=== PATIENT | female | born 1945 | race Caucasian/White ===

== ENCOUNTER 2017-02-11 15:40 | Inpatient (IN) | payer OTHER, MEDICARE ==
[~2017-02-11] VITALS: Ht 160 cm; Wt 95.3 kg
--- NOTE | 2017-02-11 15:51 | NUR ---
PT IN BATHROOM AT THIS TIME.
--- NOTE | 2017-02-11 16:01 | NUR ---
Informed waiting has been performed.
--- NOTE | 2017-02-11 16:01 | NUR ---
TRIAGE: PT BIBA FROM HOME C/C PAIN TO R LOW BACK X 2 WKS MADE WORSE TODAY WHEN BENDING OVER TO DO GAURI LITTER. PAIN NOW RADIATES DOWN RT LEG INTO FOOT. ?SCIATICA. TOOK 800 MG X 2 TABS AND TRAMADOL X 2 SINCE APPROX NOON TODAY FOR THE PAIN. STATES PAIN WAS "22"/ AND NOW IS 01/30.
--- NOTE | 2017-02-11 16:47 | NUR ---
RECIEVED TO ROOM 17 VIA WHEELCHAIR. TRANSFERED TO STRETCHER SLOWLY DUE TO PAIN
--- NOTE | 2017-02-11 16:58 | NUR ---
PT REPORTS BENDING OVER TODAY TO CLEAN LITTER BOX AND GETTING SUDDEN ONSET SHARP SHOOTING PAIN DOWN RIGHT LEG. PT TOOK 800 OF MOTRIN AROUND 0900 AND 2 TRAMADOL AT 2PM. STATES TRAMADOL IS HELPING SOME. DENIES DIFFICULTY WITH VOIDING, HAD BM TODAY. PALPABLE PEDAL PULSES.
[2017-02-11] MEDS ORDERED: MELOXICAM15 M1 PO (17:09)
[2017-02-11] MEDS ORDERED: INDAPAMIDE1.25 M1 PO (17:09)
[2017-02-11] MEDS ORDERED: KLOR-CON M1010 ME1 PO (17:10)
[2017-02-11] MEDS ORDERED: FLUOXETINE HCL20 M2 PO (17:10)
[2017-02-11] MEDS ORDERED: LOSARTAN POTASS50 M1 PO (17:11)
[2017-02-11] MEDS ORDERED: GABAPENTIN100 M2 PO (17:12)
[2017-02-11] MEDS ORDERED: VESICARE5 M1 PO (17:12)
[2017-02-11] MEDS ORDERED: NEXIUM40 M1 PO (17:13)
[2017-02-11] MEDS ORDERED: NIASPAN500 M1 PO (17:13)
[2017-02-11] MEDS ORDERED: SIMVASTATIN5 M2 PO (17:13)
[2017-02-11] MEDS ORDERED: CLONAZEPAM1 M2 PO (17:13)
[2017-02-11] MEDS ORDERED: BACLOFEN10 M1 PO ×2 (17:14→17:19)
[2017-02-11] MEDS ORDERED: ASPIRIN EC81 M1 PO (17:14)
--- NOTE | 2017-02-11 17:15 | NUR ---
SEEN BY ARAM
--- NOTE | 2017-02-11 17:17 | ED NECK/BACK PAIN COMPLAINT ---
See Addendum History of Present Illness General Chief Complaint: Low Back Pain/Injury Stated Complaint: LOW RT SIDED BACK PAIN Source: patient, old records Exam Limitations: no limitations Vital Signs & Intake/Output Vital Signs & Intake/Output Vital Signs Date Time Temp Pulse Resp B/P B/P Pulse O2 O2 Flow FiO2 Mean Ox Delivery Rate 02/11 1700 Room Air 02/11 1558 96.9 86 20 124/79 95 Room Air Allergies Coded Allergies: No Known Allergies (02/11/17) Reconcile Medications Aspirin (Ecotrin*) 81 MG TABLET.DR 1 TAB PO QPM HEART/BLOOD (Reported) Baclofen 10 MG TABLET 1 TAB PO QPM MUSCLE RELAXER (Reported) Baclofen 10 MG TABLET 1 TAB PO TIDPRN PRN muscle spasm/strain Clonazepam 1 MG TABLET 1 TAB PO QPM SLEEP (Reported) Esomeprazole (Nexium) 40 MG CAPSULE.DR 1 CAP PO QPM GI (Reported) Fluoxetine HCl 20 MG CAPSULE 1 CAP PO QAM MENTAL HEALTH (Reported) Gabapentin 100 MG CAPSULE 1 CAP PO Q8H PAIN (Reported) Indapamide 1.25 MG TABLET 1 TAB PO QAM DIURETIC (Reported) Losartan Potassium 50 MG TABLET 1 TAB PO QAM HEART/BP (Reported) Meloxicam 15 MG TABLET 1 TAB PO QAM PAIN/INFLAMMATION (Reported) Niacin (Niaspan) 500 MG TAB.ER.24H 2 TAB PO QPM CHOLESTEROL (Reported) Potassium Chloride (Klor-Con M10) 10 MEQ TAB.ER.PRT 1 TAB PO QAM SUPPLEMENT ( Reported) Simvastatin (Simvastatin*) 5 MG TABLET 1 TAB PO QPM CHOLESTEROL (Reported) Solifenacin Succinate (Vesicare) 5 MG TABLET 1 TAB PO QAM BLADDER (Reported) Tramadol HCl (Ultram) 50 MG TABLET 1-2 TAB PO Q6PRN PRN severe pain Triage Note: TRIAGE: PT BIBA FROM HOME C/C PAIN TO R LOW BACK X 2 WKS MADE WORSE TODAY WHEN BENDING OVER TO DO GAURI LITTER. PAIN NOW RADIATES DOWN RT LEG INTO FOOT. ?SCIATICA. TOOK 800 MG X 2 TABS AND TRAMADOL X 2 SINCE APPROX NOON TODAY FOR THE PAIN. STATES PAIN WAS "22"/10 AND NOW IS 4/10. Triage Nurses Notes Reviewed? yes Onset: Morning Duration: hour(s):, constant, continues in ED Timing: recent history Quality/Severity: severe, sharpness Location: lumbar spine, paraspinous muscles Radiation: upper legs, lower legs Context: lifting, turning/bending Method of Injury: twisted Loss of Consciousness: no loss of consciousness Modifying Factors: immobilization, jarring, movement, pain medication Associated Symptoms: lower back pain LMP (ages 10-50): post menopausal : No Patient currently breastfeeds: No HPI: Several hours prior to admission patient bent over to change litter and felt right low back pain sharp constant radiating to her upper and lower leg worse with turning bending improved with ibuprofen and tramadol. She denies fever chills nausea vomiting diarrhea abdominal pain chest pain shortness breath headache dysuria rash bleeding change in motor sensory function change in bowel bladder habit. She has appointment February 20 with pain environmental communications specialist who had previously done intra-articular injections on the left side last year. Past History Travel History Traveled to [place] past 21 day No Medical History Any Pertinent Medical History? see below for history Neurological: NONE EENT: NONE Cardiovascular: hypertension, hyperlipidemia Respiratory: NONE Gastrointestinal: GERD Hepatic: NONE Renal: OVERACTIVE BLADDER Musculoskeletal: chronic back pain, osteoarthritis Psychiatric: chronic pain disorder, depression, PAIN MANAGEMENT Endocrine: NONE Blood Disorders: NONE Cancer(s): NONE ELECTRICAL AND INSTRUMENTATION MANAGER/Reproductive: NONE History of MRSA: No History of VRE: No History of CDIFF: No Pneumonia Vaccine: 07/23/12 Influenza Vaccine: 07/23/13 Surgical History Surgical History: non-contributory Psychosocial History Who do you live with Patient/Self Services at Home None What is your primary language Kyrgyz Tobacco Use: Quit >30 days ago ETOH Use: occasional use Illicit Drug Use: denies illicit drug use Family History Hx Contributory? No Review of Systems Review of Systems Constitutional: Reports: no symptoms. Eyes: Reports: no symptoms. Ears, Nose, Throat, Mouth: Reports: no symptoms. Respiratory: Reports: no symptoms. Cardiovascular: Reports: no symptoms. Gastrointestinal/Abdominal: Reports: no symptoms. Musculoskeletal: Reports: see HPI, back pain, muscle stiffness. Skin: Reports: no symptoms. Neurological/Psychological: Reports: no symptoms. All Other Systems: Reviewed and Negative Physical Exam Physical Exam General Appearance: well developed/nourished, alert, awake, anxious, mild distress, obese Head: atraumatic, normal appearance Eyes: Bilateral: normal appearance, PERRL, EOMI. Ears, Nose, Throat, Mouth: hearing grossly normal, moist mucous membrane Neck: normal inspection, supple, full range of motion, normal alignment Respiratory: normal breath sounds, chest non-tender, no respiratory distress, quiet respiration, lungs clear Cardiovascular: regular rate/rhythm, normal peripheral pulses, norml femoral pulses equa Peripheral Pulses: 4+ carotid (R), 4+ carotid (L) Gastrointestinal: normal bowel sounds, soft, non-tender, no organomegaly Back: normal inspection, decreased range of motion, muscle spasm Extremities: normal range of motion Straight Leg Raising: Right: Pain at ____ degrees (15). Sensory: Medial Le: L4R, L4L. Top of Foot: 2: L5R, L5L. Sole of Foot: 2: SIR, ANGELITA. Motor: Deficit L4 Right: No Deficit L4 Left: No Deficit L5 Right: No Deficit L5 Left: No Deficit S1 Right: No Deficit S1 Right: No DTR: Deficit L4 Left: No Deficit L4 Right: No Deficit S1 Left: No Deficit S1 Right: No Patellar: 3: L4 Right, L4 Left. Achilles: 3: S1 Right, S1 Left. 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 nml as tested Skin: intact, normal color, warm/dry Progress Differential Diagnosis: herniated disc, myofascial strain, sciatica Plan of Care: Current Medications Sig/Nena Start time Last Medication Dose Stop Time Status Admin Cyclobenzaprine HCl 10 MG ONCE ONE 02/11 1730 UNVr (Flexeril 10MG Tab) 02/11 1731 Ibuprofen 800 MG ONCE ONE 02/11 1730 UNVr (Motrin) 02/11 1731 Departure Departure Time of Disposition: 1717 Disposition: HOME OR SELF CARE Condition: Stable Clinical Impression Primary Impression: Lumbago with sciatica, right side Qualifiers: Chronicity: acute Back pain laterality: right Qualified Code: M54.41 - Lumbago with sciatica, right side Referrals: ROSALEE OSBORNE,OSMIN Acuna (PCP/Family) Departure Forms: Customer Survey General Discharge Information Prescriptions: Current Visit Scripts Tramadol HCl (Ultram) 1-2 TAB PO Q6PRN PRN severe pain #30 TAB Baclofen 1 TAB PO TIDPRN PRN muscle spasm/strain #30 TAB
[2017-02-11] MEDS ORDERED: ULTRAM50 M1 PO (17:19)
--- NOTE | 2017-02-11 17:30 | NUR ---
CLEARED FOR DISCHARGE. PT IN SEVERE PAIN. REQUIRED ONE PERSON ASSIST TO STAND PIVOT TO WHEELCHAIR AND BE TAKEN TO BATHROOM. NEEDED ASSIST ON AND OFF TOILET. PT MEDICATED WITH FLEXARIL AND MOTRIN.
--- NOTE | 2017-02-11 17:51 | NUR ---
PT VOICING CONCERN ABOUT HOW SHE CAN GET HOME AND MANAGE AT HOME DUE TO PAIN. LIVES ALONE. PT ENCOURAGED TO STAY WITH SOMEONE TONIGHT. SPOKE WITH CASE MANAGMENT ABOUT PT OPTIONS. PT CAN GET AMBULANCE TRANSPORT HOME BUT WE CANNOT VERIFY IF IT WILL BE COVERED BY INSURANCE. PT CAN BE SET UP WITH HOME HEALTH VISIT IF PT WANTS ALSO. PT GOING TO LET FLEXARIL TAKE EFFECT AND TRY TO GET UP AND MOVE AGAIN IN HALF HOUR. DR CHIU NOTIFIED OF DELAY IN DISCHARGE
--- NOTE | 2017-02-11 18:39 | NUR ---
PT ATTEMPTED TO STAND UP AND USE WALKER TO AMBULATE. WAS ABLE TO GO FROM LAYING TO SITTING POSITION ON HER OWN. UPON STANDING PT HAD SEVERE PAIN IN RIGHT LEG AND WAS UNABLE TO STAND UP. PT LAID BACK DOWN ON STRETCHER WITH ASSIST. PT AND FRIEND VOICING CONCERN THAT THEY WILL NOT BE ABLE TO MANAGE HER AT HOME IN THIS CONDITION. SHANK PIECE TACKER NOTIFIED AND IS CURRENTLY IN TO SEE PT. DR CHIU NOTIFIED OF ABOVE ALSO
--- NOTE | 2017-02-11 18:53 | NUR ---
PER COMMODITY LEAD PT TO BE ADMITTED WITH ?TRANSITION TO STR AFTER 3 DAYS.
[2017-02-11 19:00] LABS: ABSOLUTE BASOPHIL COUNT 0 /CUMM (0.0-0.2); ABSOLUTE EOSINOPHIL COUNT 0.1 /CUMM (0.0-0.7); ABSOLUTE GRANULOCYTE CT 4.5 /CUMM (1.4-6.5); ABSOLUTE LYMPH COUNT 1.4 /CUMM (1.2-3.4); ABSOLUTE MONOCYTE COUNT 0.5 /CUMM (0.10-0.60); BASOPHIL % 0.4 % (0.0-2.0); EOSINOPHIL % 1.2 % (0-5); GRANULOCYTE % 68.8 % (42.2-75.2); HEMATOCRIT 38.6 % (37-47); MEAN CORPUSCULAR HGB 30.6 PG (27.0-31.0); MEAN CORPUSCULAR VOLUME 92.7 FL (81.0-99.0); MEAN PLATELET VOLUME 6.5 FL (7.4-10.4); PLATELET COUNT 244 /CUMM (130-400); RBC DISTRIBUTION WIDTH 13.6 % (11.5-14.5); RED BLOOD CELL CT 4.17 /CUMM (4.20-5.40); WHITE BLOOD CELL COUNT 6.5 /CUMM (4.8-10.8)
--- NOTE | 2017-02-11 19:09 | NUR ---
TO CT ON STRETCHER
--- NOTE | 2017-02-11 19:26 | NUR ---
PT RETURNED FROM CT SCAN. COMPLAINING OF SEVERE PAIN IN RIGHT LEG.
--- NOTE | 2017-02-11 19:45 | CT SCAN REPORT ---
EXAMINATION: CT LUMBAR SPINE WITHOUT CONTRAST CLINICAL INFORMATION: Degenerative arthritis. Right-sided sciatica COMPARISON: X-rays 02/08/2016 TECHNIQUE: Helical non-contrast CT images were obtained through the lumbar spine and 1.25 and 2.5 mm axial reconstructions were reviewed along with sagittal and coronal MPRs. FINDINGS: There are parapelvic cysts or hydronephrosis of the kidneys bilaterally, favor parapelvic cysts. There is a partially calcified low-density lesion of the lateral cortex of the left kidney, incompletely visualized. There is sigmoid diverticulosis without evidence of diverticulitis. Normal sagittal alignment. Osteopenia. Disc heights are relatively well-maintained. The sacrum is intact. There are bilateral degenerative changes of the sacroiliac joints. SPINAL LEVELS: T12-L1: No central canal stenosis or neuroforaminal narrowing. Mild bilateral facet arthropathy. L1-L2: Mild to moderate bilateral facet arthropathy. No central canal stenosis or neuroforaminal narrowing. L2-L3: Moderate bilateral facet arthropathy. Mild broad based disc bulge. Mild caudal bilateral neuroforaminal narrowing. No central canal stenosis. L3-L4: Moderate bilateral facet arthropathy. Mild broad based disc bulge. Mild, bilateral neuroforaminal narrowing, right greater than left. L4-L5: Moderate to severe bilateral facet arthropathy. Moderate broad-based disc bulge. Mild to moderate bilateral neuroforaminal narrowing. Mild central canal narrowing. L5-S1: Moderate to severe bilateral facet arthropathy. Moderate broad-based disc bulge. Mild bilateral neuroforaminal narrowing. There is subtle density with a punctate calcification in the right lateral recess which may represent a disc extrusion or sequestered fragment. Reference series 2 image [id number] and sagittal image 61/96. Mild central canal narrowing. IMPRESSION: There is subtle density with a punctate calcification in the right lateral recess at L5-S1 which could represent disc extrusion or sequestered fragment. The presence of calcification suggests this may be a subacute or chronic finding. Multilevel degenerative changes of the lumbar spine are seen at other levels, fully described above.
--- NOTE | 2017-02-11 20:04 | NUR ---
PT UNABLE TO GET COMFORTABLE ON STRETCHER DUE TO PAIN. MEDICATED WITH MORPHINE WITH GOOD IMPROVEMENT IN PAIN. ASSISTED IN GETTING UNDRESSED. DR CHIU IN TO SEE PT.
--- NOTE | 2017-02-11 20:39 | History & Physical ---
TITO HAWKINS 02/11/172037: General Information and HPI MD Statement: I have seen and personally examined ADRIEL COX and documented this H&P. The patient is a 71 year old F who presented with a patient stated chief complaint of right low back pain. Source of Information: patient Exam Limitations: no limitations History of Present Illness: This is a 70-year-old female with past medical history significant for chronic severe osteoarthritis, chronic back pain, chronic pain disorder, hypertension, hyperlipidemia, depression, GERD, insomnia, overactive bladder, cholecystectomy, bilateral knee joint replacement presented to [facility] emergency department from home with chief complaint of right low back pain since morning. According to the patient, she bent over to rock picker cat litter and all of a sudden she felt right low back pain, 10 out of 10, severe and sharp, radiating down to the right lateral thigh, leg and foot. Pain increases with turning, twisting, bending. Mild relief with tramadol and ibuprofen. Also reports associated numbness and tingling sensation from right thigh to foot. No weakness or sensory changes. She denies any urine or stool incontinence. Reports no trauma. Denies any spinal pain, motor deficits, sensory deficits. Denies any lightheadedness or dizziness/syncope episode. She denies any fever, chills, chest pain, racing of heart, cough, difficulty breathing, nausea, vomiting, abdominal pain, change in bladder or bowel habits, headache. Past medical history significant for smoking quitted 30 years ago. Denies any alcohol abuse, denies any illicit drug abuse. She lives alone at home and takes care by herself. She has appointment on February 20 with pain shipping and receiving specialist who had previously done intra-articular injections on the left side last year. She follows [facility] for chronic back pain and chronic severe osteoarthritis. Patient readied for discharge and friend reports she will not be able enough to get into her jeep or climb the stairs into her home. She lives alone without assistance. The patient is unable to ambulate or get out of bed without assistance secondary to back pain. Allergies/Medications Allergies: Coded Allergies: No Known Allergies (02/11/17) Home Med list Aspirin (Ecotrin*) 81 MG TABLET. 1 TAB PO QPM HEART/BLOOD (Reported) Baclofen 10 MG TABLET 1 TAB PO TIDPRN PRN muscle spasm/strain Clonazepam 1 MG TABLET 1 TAB PO QPM SLEEP (Reported) Esomeprazole (Nexium) 40 MG CAPSULE.DR 1 CAP PO QPM GI (Reported) Fluoxetine HCl 20 MG CAPSULE 1 CAP PO QAM MENTAL HEALTH (Reported) Gabapentin 100 MG CAPSULE 1 CAP PO Q8H PAIN (Reported) Indapamide 1.25 MG TABLET 1 TAB PO QAM DIURETIC (Reported) Losartan Potassium 50 MG TABLET 1 TAB PO QAM HEART/BP (Reported) Meloxicam 15 MG TABLET 1 TAB PO QAM PAIN/INFLAMMATION (Reported) Niacin (Niaspan) 500 MG TAB.ER.24H 2 TAB PO QPM CHOLESTEROL (Reported) Potassium Chloride (Klor-Con M10) 10 MEQ TAB.ER.PRT 1 TAB PO QAM SUPPLEMENT ( Reported) Simvastatin (Simvastatin*) 5 MG TABLET 1 TAB PO QPM CHOLESTEROL (Reported) Solifenacin Succinate (Vesicare) 5 MG TABLET 1 TAB PO QAM BLADDER (Reported) Tramadol HCl (Ultram) 50 MG TABLET 1-2 TAB PO Q6PRN PRN severe pain Compliance With Home Meds: GOOD Past History Travel History Traveled to [place] past 21 day No Medical History Neurological: NONE EENT: NONE Cardiovascular: hypertension, hyperlipidemia Respiratory: NONE Gastrointestinal: GERD Hepatic: NONE Renal: OVERACTIVE BLADDER Musculoskeletal: chronic back pain, osteoarthritis Psychiatric: chronic pain disorder, depression, PAIN MANAGEMENT Endocrine: NONE Blood Disorders: NONE Cancer(s): NONE GLASS TECHNICIAN/INSTALLER/Reproductive: NONE History of MRSA: No History of VRE: No History of CDIFF: No Pneumonia Vaccine: 07/23/12 Influenza Vaccine: 07/23/13 Surgical History Surgical History: non-contributory Past Family/Social History Psychosocial History Services at Home: None Smoking Status: Former Smoker ETOH Use: occasional use Illicit Drug Use: denies illicit drug use Review of Systems Review of Systems Constitutional: Denies: chills, diaphoresis, fever, malaise, weakness, unexplained weight loss. EENTM: Denies: no symptoms. Cardiovascular: Denies: chest pain, orthopena, palpitations, syncope. Respiratory: Denies: cough, hemoptysis, orthopnea, short of breath, sputum production. GI: Denies: abdominal pain, constipation, diarrhea, nausea, vomiting. Genitourinary: Denies: dysuria, frequency, hematuria, hesitation. Musculoskeletal: Reports: back pain. Skin: Denies: no symptoms. Neurological/Psychological: Reports: numbness, tingling. Denies: confusion, dementia, emotional problems, headache, tremors. Exam & Diagnostic Data Last 24 Hrs of Vital Signs/I&O Vital Signs Date Time Temp Pulse Resp B/P B/P Pulse O2 O2 Flow FiO2 Mean Ox Delivery Rate 02/11 1858 98.2 66 18 177/79 94 Room Air 02/11 1700 Room Air 02/11 1558 96.9 86 20 124/79 95 Room Air Intake & Output 02/11 1600 02/11 0800 02/11 0000 Intake Total Output Total Balance Patient 95.254 kg Weight Weight Reported by Patient Measurement Method Physical Exam General Appearance Alert, Oriented X3, Cooperative, No Acute Distress Skin No Rashes, No Breakdown Skin Temp/Moisture Exam: Cool/Dry Sepsis Skin Exam (color): Normal for Ethnicity HEENT Atraumatic, PERRLA, EOMI, Mucous Membr. moist/pink Neck Supple, No JVD Lymphatic Axillary nl Cardiovascular Regular Rate, Normal S1, Normal S2, No Murmurs Lungs Clear to Auscultation Abdomen Normal Bowel Sounds, Soft, No Tenderness Neurological Normal Speech, Strength at 5/5 X4 Ext, Sensation Intact, Cranial Nerves 3-12 NL Extremities No Clubbing, No Cyanosis, No Edema Vascular Normal Pulses Last 24 Hrs of Labs/Gideon: Laboratory Tests 02/11/171852: Anion Gap 12, Estimated GFR > 60, BUN/Creatinine Ratio 20.0, Glucose 103 H, Calcium 9.5, Magnesium 1.7, Total Bilirubin 0.6, AST 24, ALT 37, Alkaline Phosphatase 106, Total Protein 6.8, Albumin 3.7, Globulin 3.1, Albumin/Globulin Ratio 1.2, CBC w Diff NO MAN DIFF REQ, RBC 4.17 L, MCV 92.7, MCH 30.6, RDW 13.6 , MPV 6.5 L, Gran % 68.8, Lymphocytes % 22.1, Monocytes % 7.5, Eosinophils % 1.2, Basophils % 0.4, Absolute Granulocytes 4.5, Absolute Lymphocytes 1.4, Absolute Monocytes 0.5, Absolute Eosinophils 0.1, Absolute Basophils 0, PUBS MCHC 33.0 Assessment/Plan Assessment: This is a 70-year-old female with past medical history significant for chronic severe osteoarthritis, chronic back pain, chronic pain disorder, hypertension, hyperlipidemia, depression, GERD, insomnia, overactive bladder, cholecystectomy, bilateral knee joint replacement presented to [facility] emergency department from home with chief complaint of right low back pain since morning. Vitals on admission-afebrile, heart rate 86, respiratory rate 20, blood pressure 124/79, saturating at 95% on room air. Pertinent labs on admission-CBC and BEP was normal. CT lumbar spine- Lumbar CT: There is subtle density with a punctate calcification in the right lateral recess at L5-S1 which could represent disc extrusion or sequestered fragment. The presence of calcification suggests this may be a subacute or chronic finding. Multilevel degenerative changes of the lumbar spine are seen. Problem list 1. Acute right low back pain 2. Hypertension 3. Hyperlipidemia 4. Chronic severe osteoarthritis 5. Chronic back pain 6. Depression 7. GERD 8. Insomnia 9. Overactive bladder Acute right low back pain According to the patient, she bent over to rock picker cat litter and all of a sudden she felt right low back pain, 10 out of 10, severe and sharp, radiating down to the right lateral thigh, leg and foot. Pain increases with turning, twisting, bending. Also reports associated numbness and tingling sensation from right thigh to foot. No weakness or sensory changes. Acute right low back pain-possibly lumbago with right-sided sciatica VERSUS LUMBOSACRAL STRAIN. Lumbar CAT scan showed disc extrusion at the level of L5-S1. And multilevel degenerative changes of lumbar spine. * Admit to general floor for further management * Monitor vitals every shift * Maintain oxygen saturation above 90%. * Pain management * Ibuprofen 600 every 6 hours when necessary for mild pain * Morphine 2 mg every 4 when necessary for moderate pain * Tramadol 50 mg every 6 when necessary for severe * Muscle relaxant-baclofen * Will continue home dose of gabapentin. * Physical therapy consult * Fall precautions Hypertension Continue losartan Continue indapamide Hyperlipidemia Patient takes simvastatin, will give Lipitor here Continue niacin Depression Continue fluoxetine GERD Patient takes Nexium at home Will give omeprazole Insomnia Continue clonazepam home dose Overactive bladder Patient uses Vesicare at home Give oxybutynin full code DVT prophylaxis subcutaneous heparin Heart healthy diet Pain pathway As Ranked By This Provider Problem List: 1. Hypertension 2. Hypercholesterolemia 3. Lumbago with sciatica, right side Qualifiers Chronicity: acute Back pain laterality: right Qualified Code: M54.41 - Lumbago with sciatica, right side 4. H/O total knee replacement Core Measures/Miscellaneous Acute Coronary Syndrome ACS Diagnosis: No Cerebrovascular Accident CVA/TIA Diagnosis: No Congestive Heart Failure CHF Diagnosis: No Venous Thromboembolism VTE Risk Factors: Acute medical illness, Age > 40, Immobility, paresis No [facility] VTE prophylaxis d/t: No contraindications No VTE Pharm Prophylaxis d/t: No contraindications VTE Diagnosis: No VTE Type: NONE VTE Confirmed by (Test): NONE Severe Sepsis Severe Sepsis Present: No Septic Shock Septic Shock Present: No Miscellaneous Documentation Attending Case Discussed With: APRIL GUERRERO MD Primary Care Physician: OSMIN TURK MD Patient sees these Specialists ortho pain management Level of Patient Care: General Medicine KAILEE OSBORNE,CARMEN 02/11/172037: Resident Review Statement Resident Statement: examined this patient, discussed with audit intern Other Findings: 71-year-old lady with medical problems include hypertension, hyperlipidemia, mild depression, chronic osteoarthritis with multiple spinal injections most recently last year, presents to the emergency room with a chief complaint of acute right lower back pain. Patient states that she bent down to change the cat litter and couldn't stand up. She subsequently lowered herself to the floor and crawled to the telephone with she called her friend. She took some tramadol and Motrin at home with some minor alleviation, this event was at 8 in the morning. Couple hours later she presented to the emergency room for unrelenting back pain. Her only complaint at present is right lower back pain that radiates to the Botox in the posterior aspect of the right thigh and right lateral lower extremity. Denies any cord compression-like symptoms, denies any spinal pain, any motor or sensory deficits, bladder or bowel incontinence. Physical exam pertinent positive - SLR positive at 15 on the right lower extremity, tenderness to palpation over right paraspinal muscles, Botox, posterior thigh. Neuro exam is intact, 2+ reflexes, 2+ pulses, range of motion on passive motion of the hip is intact Labs are benign CAT scan of the lumbar spine shows a possible disc protrusion versus fragment at the L5-S1 location, multilevel degenerative changes of the lumbar spine. No acute findings Assessment- 1. Right lower back pain; acute fracture versus spasm 2. Hypertension 3. Hyperlipidemia 4. Mild depression 5. Chronic severe osteoarthritis 6. History significant smoking, quit over 30 years ago 7. GERD Plan- GEN med admission Vitals per protocol PT consult Continue home meds Adequate analgesia, muscle relaxants Heart healthy diet Subcutaneous heparin for DVT prophylaxis Full code APRIL GUERRERO 02/12/17 0209: Attending MD Review Statement Attending Statement Attending MD Statement: examined this patient, discuss w/resident/PA/NAT INSTRUCTOR, agreed w/resident/PA/NAT INSTRUCTOR, reviewed EMR data (avail), reviewed images, amended to note Attending Assessment/Plan: CC: back pain PMH: HTN, HLD, overactive bladder, depression/anxiety, bilateral knee replacement Patient noticed severe right-sided lower back pain radiating to right lower extremity started after bending forwards to clean her cat litter, patient could not get up secondary to pain, crawled and took 2 tablets of tramadol without relief, called her friend who called EMS. Moderate pain relief after pain medications in ER, still has severe sharp pains when she moves. She denies fever chills, nausea, vomiting, diarrhea, abdominal pain, chest pain, shortness breath , headache, dysuria, rash, bleeding, change in motor or sensory in right lower extremity, or function change in bowel bladder habit. She has chronic low back pain right more than left, left-sided pain relieved after some procedure last year, has repeat appointment February 20 with pain shipping and receiving specialist. Vitals: Mildly hypertensive otherwise unremarkable. On examination: A O 3, cooperative, no acute distress, neck supple, JVD normal , no lymphadenopathy, mucosa moist, no focal neurological deficit, right hip movements are restricted secondary to pain, as a positive for pain, no sensory loss, no dependent edema, no obvious skin rashes or inflammation CVS: S1-S2, RRR. RS: Clear to auscultate bilaterally. Abdomen: Soft, NT, ND, bowel sounds present. Labs: CBC, BMP, LFT unremarkable, small leukocyte Estrace and urine. Lumbar CT scan without IV contrast: 1. There is subtle density with a punctate calcification in the right lateral recess at L5-S1 which could represent disc extrusion or sequestered fragment. The presence of calcification suggests this may be a subacute or chronic finding. 2. Multilevel degenerative changes of the lumbar spine are seen at other levels A and P # Intractable back pain secondary to sciatica versus lumbosacral strain, patient is unable to move the right lower extremity in full range secondary to pain. # History of HTN, HLD, overactive bladder, osteoarthritis with chronic back pain - Admit to general medicine - Adequate pain control with NSAIDs, tramadol, morphine for severe pain - OT PT evaluation - Continue her all home medications: Aspirin, baclofen, clonazepam, Nexium, fluoxetine, gabapentin, and a per minute, losartan, simvastatin, Vesicare fluoxetine, gabapentin, and a per minute, losartan, simvastatin, Vesicare
--- NOTE | 2017-02-11 20:51 | NUR ---
PT HAS A BED 230-1
--- NOTE | 2017-02-11 21:10 | NUR ---
ASSISTED ON AND OFF COMMODE. PT REQUIRED ONE PERSON ASSIST DUE TO PAIN
--- NOTE | 2017-02-11 21:31 | NUR ---
REPORT GIVEN TO DINAH ON 2ND FLOOR
--- NOTE | 2017-02-11 21:40 | NUR ---
DR HENDRICKS AT BEDSIDE. NOTIFIED OF ELEVATED BLOOD PRESSURES AND THAT PT DID NOT TAKE BLOOD PRESSURE MEDS TODAY. PT ALSO COMPLAINING OF GI UPSET/BURINING. PLAN TO GET ORDER FOR DAILY LOSARTAN AND GI COCKTAIL. HOUSE STAFF PAGED
--- NOTE | 2017-02-11 21:43 | NUR ---
SPOKE WITH DR HAWKINS AND REPORTED THAT PT NEEDS DAILY LOSARTAN AND ANTACID PER REQUEST OF DR HENDRICKS
--- NOTE | 2017-02-11 21:43 | NUR ---
PT TAKEN TO [facility] BED
--- NOTE | 2017-02-11 22:00 | NUR ---
NURSING NOTE: PT ARRIVED TO 2NA VIA STRETCHER @ [id number]. PT A&O, CALM, AND COOPERATIVE. NO FAMILY AT BEDSIDE. PT COMPLAINING OF 0/10 PAIN. ADMISSION ASSESSMENT COMPLETED. PT ORIENTED TO STAFF, ROOM, AND CALL HAN. PT REFUSING TO BE TURNED AT THIS TIME FOR SKIN ASSESSMENT - WILL REATTEMPT IN AM. FALL PRECAUTIONS PUT IN PLACE. RN WILL CONTINUE TO MONITOR.
[2017-02-11 22:43] VITALS: BP 150/70
--- NOTE | 2017-02-12 02:11 | Admission Certification ---
Admission Certification Certification Statement - As attending physician, I certify that at the time of - admission, based on clinical presentation, severity of - symptoms, need for further diagnostic testing and - therapeutic interventions, and risk of adverse outcomes - without in-hospital treatment, in my clinical assessment, - this patient requires an acute hospital stay for a minimum - of two nights or longer. I have also considered psychsocial - factors such as support system, advanced age, financial - issues, cognitive issues, and failed out-patient treatments, - past re-admission history, safety of patient, and lack of - compliance as applicable. Specific rationale supporting this admission is: Intractable right-sided lower back pain with sciatica
[2017-02-12 06:31] VITALS: BP 102/60
--- NOTE | 2017-02-12 09:57 | PN- Housestaff ---
[facility]NIS [facility]957: Subjective Follow-up For: Intractable back pain Subjective: Afebrile, hemodynamically stable, no acute overnight events reported. Patient pain is well controlled. Review of Systems Constitutional: Reports: see HPI. Objective Last 24 Hrs of Vital Signs/I&O Vital Signs Date Time Temp Pulse Resp B/P B/P Pulse O2 O2 Flow FiO2 Mean Ox Delivery Rate 02/12 1558 97.9 60 20 100/60 98 02/12 1445 Room Air 02/12 0821 116/70 02/12 0631 98.0 66 18 102/60 93 Room Air 02/11 2250 66 150/70 02/11 2243 98.3 66 20 150/70 94 Room Air 02/11 2225 96 Room Air 02/11 2140 97.5 71 18 175/88 94 Room Air Intake & Output 02/12 1600 02/12 0800 02/12 0000 Intake Total 1700 200 200 Output Total 100 Balance 1700 100 200 Intake, Oral 1700 200 200 Number 4 Bowel Movements Output, Urine 100 Patient 95.254 kg Weight Weight Reported by Patient Measurement Method Physical Exam General Appearance: Alert, Oriented X3, Cooperative, No Acute Distress HEENT: Atraumatic, PERRLA, EOMI, Mucous Membr. moist/pink Cardiovascular: Regular Rate, Normal S1, Normal S2, No Murmurs Lungs: Clear to Auscultation, Normal Air Movement Abdomen: Normal Bowel Sounds, Soft, No Tenderness Neurological: Normal Speech Extremities: No Clubbing, No Cyanosis, No Edema Current Medications: Current Medications Sig/Nena Start time Last Medication Dose Route Stop Time Status Admin Aspirin Buffered 81 MG QPM 02/11 2200 AC 02/12 PO 2032 Atorvastatin Calcium 5 MG 1700 02/12 1700 AC 02/12 PO 160 Baclofen 10 MG TIDPRN PRN 02/11 2100 AC 02/12 PO 190 Clonazepam 1 MG QPM 02/11 2200 AC 02/12 PO 02/18 Fluoxetine HCl 20 MG QAM 02/12 1000 AC 02/12 PO 08 Gabapentin 100 MG Q8H 02/11 2100 AC 02/12 PO 2032 Heparin Sodium 5,000 UNIT Q8 02/11 2200 AC 02/12 (Porcine) SC 2032 Ibuprofen 600 MG Q6P PRN 02/11 2045 AC PO Indapamide 1.25 MG DAILY 02/11 2100 AC 02/12 PO 0821 Losartan Potassium 50 MG QAM 02/12 1000 AC 02/12 PO 0821 Losartan Potassium 50 MG ONCE ONE 02/11 2145 DC 02/11 PO 02/11 2146 225 Morphine Sulfate 2 MG Q4P PRN 02/11 2100 AC IV Niacin 1,000 MG DAILY 02/12 1000 AC 02/12 PO 0822 Omeprazole 40 MG DAILY AC 02/12 0700 AC 02/12 PO 0549 Oxybutynin Chloride 5 MG BID 02/12 1000 AC 02/12 PO 203 Patient Medication 1 UNIT ONE NR 02/11 2115 MO Teaching ED 02/11 2130 Patient Medication 1 UNIT ONE NR 02/11 2115 MO Teaching ED 02/11 2130 Patient Medication 1 UNIT ONE NR 02/11 2115 [facility] ED 02/11 2130 Patient Medication 1 UNIT ONE NR 02/11 2100 [facility] ED 02/11 2130 Patient Medication 1 UNIT ONE NR 02/11 2100 [facility] ED 02/11 2130 Potassium Chloride 10 MEQ DAILY 02/12 1000 AC 02/12 PO 0821 Tramadol HCl 50 MG Q6P PRN 02/11 2100 AC 02/12 PO 1904 Last 24 Hrs of Lab/Gideon Results Last 24 Hrs of Labs/Mics: Laboratory Tests 02/11/172107: Urine Color YEL, Urine Clarity HAZY H, Urine pH 6.0, Ur Specific [place] 1.020, Urine Protein NEG, Urine Ketones NEG, Urine Nitrite NEG, Urine Bilirubin NEG, Urine Urobilinogen 0.2, Ur Leukocyte Esterase SMALL H, Ur Microscopic SEDIMENT EXAMINED, Urine WBC 5-10 H, Ur Epithelial Cells MOD H, Urine Bacteria PACKD H , Urine Hemoglobin NEG, Urine Glucose NEG Assessment/Plan Assessment: # Intractable back pain secondary to sciatica versus lumbosacral strain Lumbar CAT scan showed disc extrusion at the level of L5-S1. And multilevel degenerative changes of lumbar spine. * Cont' Ibuprofen 600 every 6 hours when necessary for mild pain * Cont' Morphine 2 mg every 4 when necessary for moderate pain * Cont' Tramadol 50 mg every 6 when necessary for severe * Muscle relaxant-baclofen * Will continue home dose of gabapentin. * Physical therapy consult * Fall precautions #Hypertension * Continue losartan * Continue indapamide #Hyperlipidemia * Patient takes simvastatin, will give Lipitor here * Continue niacin #Depression * Continue fluoxetine #GERD * Patient takes Nexium at home * Will give omeprazole #Insomnia * Continue clonazepam home dose #Overactive bladder * Patient uses Vesicare at home * Give oxybutynin Full code DVT prophylaxis subcutaneous heparin Heart healthy diet Pain pathway Problem List: 1. Lumbago with sciatica, right side Pain Ratin Pain Location: back Pain Goal: Remain pain free Pain Plan: See A&P Tomorrow's Labs & Rationales: none ELIA OSBORNE,[facility] 02/12/17 1435: Attending MD Review Statement Attending Statement Attending MD Statement: examined this patient, discuss w/resident/PA/FUNERAL DIRECTOR AND EMBALMER, agreed w/resident/PA/FUNERAL DIRECTOR AND EMBALMER, discussed with family, reviewed EMR data (avail), discussed with nursing, discussed with case mgmt, reviewed images, amended to note Attending Assessment/Plan: Patient resting comfortably in bed. Her pain is well controlled now but still she has pain on movement. We will continue the current pain regimen for now. Bowel regimen to avoid constipation. Physical therapy.
--- NOTE | 2017-02-12 13:12 | Discharge Summary ---
Visit Information Visit Dates Admission Date: 02/11/17 Discharge Date: 02/14/17 Hospital Course Course Attending Physician: APRIL GUERRERO MD Primary Care Physician: ROSALEE OSBORNE,OSMIN Acuna Hospital Course: This is a 70-year-old female with past medical history significant for chronic severe osteoarthritis, chronic back pain, chronic pain disorder, hypertension, hyperlipidemia, depression, GERD, insomnia, overactive bladder, cholecystectomy, bilateral knee joint replacement presented to [facility] emergency department from home with chief complaint of right low back pain for last 24 hrs before prestning to [facility].Patient noticed severe right-sided lower back pain radiating to right lower extremity started after bending forwards to clean her cat litter, patient could not get up secondary to pain, crawled and took 2 tablets of tramadol without relief, called her friend who called EMS. Moderate pain relief after pain medications in ER, still has severe sharp pains when she moves. She denies fever chills, nausea, vomiting, diarrhea, abdominal pain, chest pain, shortness breath, headache, dysuria, rash, bleeding, change in motor or sensory in right lower extremity, or function change in bowel bladder habit. She has chronic low back pain right more than left, left-sided pain relieved after some procedure last year, has repeat appointment February 20 with pain security incident response specialist. Vitals: Mildly hypertensive otherwise unremarkable. On examination: A O 3, cooperative, no acute distress, neck supple, JVD normal , no lymphadenopathy, mucosa moist, no focal neurological deficit, right hip movements are restricted secondary to pain, as a positive for pain, no sensory loss, no dependent edema, no obvious skin rashes or inflammation CVS: S1-S2, RRR. RS: Clear to auscultate bilaterally. Abdomen: Soft, NT, ND, bowel sounds present. Labs: CBC, BMP, LFT unremarkable, small leukocyte Estrace and urine. Lumbar CT scan without IV contrast: 1. There is subtle density with a punctate calcification in the right lateral recess at L5-S1 which could represent disc extrusion or sequestered fragment. The presence of calcification suggests this may be a subacute or chronic finding. 2. Multilevel degenerative changes of the lumbar spine are seen at other levels Hospital course: 1.Low Back pain and no acute fx or changes on the ct scan. 2. H/O Hypertension 3. H/O Hyperlipidemia 4. H/OMild depression 5. H/OChronic severe osteoarthritis 6. H/O History significant smoking, quit over 30 years ago 7. H/OGERD 8.Morbid Obesity The patient was treated in the hospital primarily for low back pain She was treated with PO Ultram and Baclofen for her back paiun. Her Lumabr spinal CT didnt show any changes or any acute fx. She was provided with the walker for her home ambulkation, She was provided with Prescription for Baclofen and Tramadol. Allergies: Coded Allergies: No Known Allergies (02/11/17) Significant Procedures: EXAM TYPE: CAT - CT LUMB SPINE WO IV CONTRAST EXAMINATION: CT LUMBAR SPINE WITHOUT CONTRAST CLINICAL INFORMATION: Degenerative arthritis. Right-sided sciatica COMPARISON: X-rays 02/08/2016 TECHNIQUE: Helical non-contrast CT images were obtained through the lumbar spine and 1.25 and 2.5 mm axial reconstructions were reviewed along with sagittal and coronal MPRs. FINDINGS: There are parapelvic cysts or hydronephrosis of the kidneys bilaterally, favor parapelvic cysts. There is a partially calcified low-density lesion of the lateral cortex of the left kidney, incompletely visualized. There is sigmoid diverticulosis without evidence of diverticulitis. Normal sagittal alignment. Osteopenia. Disc heights are relatively well-maintained. The sacrum is intact. There are bilateral degenerative changes of the sacroiliac joints. SPINAL LEVELS: T12-L1: No central canal stenosis or neuroforaminal narrowing. Mild bilateral facet arthropathy. L1-L2: Mild to moderate bilateral facet arthropathy. No central canal stenosis or neuroforaminal narrowing. L2-L3: Moderate bilateral facet arthropathy. Mild broad based disc bulge. Mild caudal bilateral neuroforaminal narrowing. No central canal stenosis. L3-L4: Moderate bilateral facet arthropathy. Mild broad based disc bulge. Mild, bilateral neuroforaminal narrowing, right greater than left. L4-L5: Moderate to severe bilateral facet arthropathy. Moderate broad-based disc bulge. Mild to moderate bilateral neuroforaminal narrowing. Mild central canal narrowing. L5-S1: Moderate to severe bilateral facet arthropathy. Moderate broad-based disc bulge. Mild bilateral neuroforaminal narrowing. There is subtle density with a punctate calcification in the right lateral recess which may represent a disc extrusion or sequestered fragment. Reference series 2 image [id number] and sagittal image 61/96. Mild central canal narrowing. IMPRESSION: There is subtle density with a punctate calcification in the right lateral recess at L5-S1 which could represent disc extrusion or sequestered fragment. The presence of calcification suggests this may be a subacute or chronic finding. Multilevel degenerative changes of the lumbar spine are seen at other levels, fully described above. Pertinent Lab Results: Laboratory Tests 02/13 0640 Chemistry Sodium (137 - 145 mmol/L) 138 Potassium (3.5 - 5.1 mmol/L) 3.9 Chloride (98 - 107 mmol/L) 101 Carbon Dioxide (22 - 30 mmol/L) 27 Anion Gap (5 - 16) 9 BUN (7 - 17 mg/dL) 17 Creatinine (0.5 - 1.0 mg/dL) 1.0 Estimated GFR (>60 ml/min) 54 L BUN/Creatinine Ratio (7 - 25 %) 17.0 Hematology CBC w Diff NO MAN DIFF REQ WBC (4.8 - 10.8 /CUMM) 6.0 RBC (4.20 - 5.40 /CUMM) 3.84 L Hgb (12.0 - 16.0 G/DL) 11.8 L Hct (37 - 47 %) 35.6 L MCV (81.0 - 99.0 FL) 92.6 MCH (27.0 - 31.0 PG) 30.7 RDW (11.5 - 14.5 %) 13.8 Plt Count (130 - 400 /CUMM) 205 MPV (7.4 - 10.4 FL) 7.1 L Gran % (42.2 - 75.2 %) 59.9 Lymphocytes % (20.5 - 51.1 %) 29.2 Monocytes % (1.7 - 9.3 %) 7.9 Eosinophils % (0 - 5 %) 2.4 Basophils % (0.0 - 2.0 %) 0.6 Absolute Granulocytes (1.4 - 6.5 /CUMM) 3.6 Absolute Lymphocytes (1.2 - 3.4 /CUMM) 1.8 Absolute Monocytes (0.10 - 0.60 /CUMM) 0.5 Absolute Eosinophils (0.0 - 0.7 /CUMM) 0.1 Absolute Basophils (0.0 - 0.2 /CUMM) 0 PUBS MCHC (33.0 - 37.0 G/DL) 33.1 Disposition Summary Disposition Principal Diagnosis: 1.Low Back pain Additional Diagnosis: 2. H/O Hypertension 3. H/O Hyperlipidemia 4. H/OMild depression 5. H/OChronic severe osteoarthritis 6. H/O History significant smoking, quit over 30 years ago 7. H/OGERD 8.Morbid Obesity Discharge Disposition: home or self care Discharge Instructions General Discharge Information Code Status: Full Code Patient's Diet: As tolerated Patient's Activity: As toleratd and recommended by the PT Follow-Up Instructions/Appts: Selin with PCP in1 week of discharge Medications at Discharge Discharge Medications: Continue taking these medications: Indapamide (Indapamide) 1.25 MG TABLET 1 Tablet ORAL Every Morning Qty = 90 Comments: Last Taken:02/14/17 Time: 9 AM Meloxicam (Meloxicam) 15 MG TABLET 1 Tablet ORAL Every Morning Qty = 30 Comments: Last Taken:NOT GIVEN IN HOSPITAL Time: Potassium Chloride (Klor-Con M10) 10 MEQ TAB.ER.PRT 1 Tablet ORAL Every Morning Qty = 90 Comments: Last Taken:02/14/17 Time:9 AM Fluoxetine HCl (Fluoxetine HCl) 20 MG CAPSULE 1 Capsule ORAL Every Morning Qty = 90 Comments: Last Taken:02/14/17 Time: 9 AM Losartan Potassium (Losartan Potassium) 50 MG TABLET 1 Tablet ORAL Every Morning Qty = 90 Comments: Last Taken:02/14/17 Time: 9 AM Gabapentin (Gabapentin) 100 MG CAPSULE 1 Capsule ORAL Q8H Qty = 60 Comments: Last Taken:02/14/17 Time: 6 AM Solifenacin Succinate (Vesicare) 5 MG TABLET 1 Tablet ORAL Every Morning Qty = 90 Comments: Last Taken:02/14/17 ( DITROPAN GIVEN IN HOSPITAL ) Time: 9 AM Niacin (Niaspan) 500 MG TAB.ER.24H 2 Tablet ORAL Every night Qty = 180 Comments: Last Taken:02/14/17 Time: 9 AM Esomeprazole (Nexium) 40 MG CAPSULE.DR 1 Capsule ORAL Every night Qty = 90 Comments: Last Taken:02/14/17 Time: 6 AM ( PRILOSEC GIVEN IN HOSPITAL ) Simvastatin (Simvastatin*) 5 MG TABLET 1 Tablet ORAL Every night Qty = 90 Comments: Last Taken:02/13/17 Time:4 PM Clonazepam (Clonazepam) 1 MG TABLET 1 Tablet ORAL Every night Qty = 90 Comments: Last Taken:02/13/17 Time:9 PM Aspirin (Ecotrin*) 81 MG TABLET.DR 1 Tablet ORAL Every night Comments: Last Taken:02/13/17 Time:9 PM Tramadol HCl (Ultram) 50 MG TABLET 1-2 Tablet ORAL EVERY 6 HOURS NEEDED as needed for severe pain Qty = 30 Comments: Last Taken:02/14/17 Time: 9 AM Baclofen (Baclofen) 10 MG TABLET 1 Tablet ORAL THREE TIMES A DAY NEEDED as needed for muscle spasm/strain Qty = 30 Comments: Last Taken:02/12/17 Time:7 PM Copies To: ROSALEE OSBORNE,OSMIN Acuna
[2017-02-12 15:58] VITALS: BP 100/60
--- NOTE | 2017-02-12 21:53 | NUR ---
SHIFT NOTE- PT A/O X 3, ON RA. DENIES PAIN TO BACK/RIGHT LEG WHEN RESTING/NOT MOVING, BUT STATES THE PAIN INCREASES WITH MOVEMENT. MEDICATED AT 1900 WITH PRN BACLOFEN AND TRAMADOL FOR PAIN 08/01 WITH ATTEMPT OOB TO BSC. PT LATER ASSISTED WITH AMBULATION A X1 WITH RW FROM BED TO DOORWAY AND BACK WITH STATED PAIN 6-7/10 ON AMBULATION, "NERVE PAIN, ONLY WHEN I WALK". ALPS IN PLACE, SKIN INTACT, +CMS. WILL CONTINUE TO MONITOR.
[2017-02-12 22:55] VITALS: BP 126/70
[2017-02-13 06:52] VITALS: BP 104/62
[2017-02-13 08:07] LABS: ABSOLUTE BASOPHIL COUNT 0 /CUMM (0.0-0.2); ABSOLUTE EOSINOPHIL COUNT 0.1 /CUMM (0.0-0.7); ABSOLUTE GRANULOCYTE CT 3.6 /CUMM (1.4-6.5); ABSOLUTE LYMPH COUNT 1.8 /CUMM (1.2-3.4); ABSOLUTE MONOCYTE COUNT 0.5 /CUMM (0.10-0.60); BASOPHIL % 0.6 % (0.0-2.0); EOSINOPHIL % 2.4 % (0-5); GRANULOCYTE % 59.9 % (42.2-75.2); HEMATOCRIT 35.6 % (37-47); MEAN CORPUSCULAR HGB 30.7 PG (27.0-31.0); MEAN CORPUSCULAR HGB CONC 33.1 G/DL (33.0-37.0); MEAN CORPUSCULAR VOLUME 92.6 FL (81.0-99.0); MEAN PLATELET VOLUME 7.1 FL (7.4-10.4); PLATELET COUNT 205 /CUMM (130-400); RBC DISTRIBUTION WIDTH 13.8 % (11.5-14.5); RED BLOOD CELL CT 3.84 /CUMM (4.20-5.40)
--- NOTE | 2017-02-13 08:56 | Patient Discharge Instructions ---
Discharge Instructions General Discharge Information You were seen/treated for: low back pain Special Instructions: please f/u with pcp in 1 week of discharge Acute Coronary Syndrome Inclusion Criteria At DC or during hospital stay patient has or had the following: ACS DIAGNOSIS No Discharge Core Measures Meds if any: Prescribed or Continued at Discharge Meds if any: NOT Prescribed or Continued at Discharge Congestive Heart Failure Inclusion Criteria At DC or during hospital stay patient has or had the following: CHF DIAGNOSIS No Discharge Core Measures Meds if any: Prescribed or Continued at Discharge Meds if any: NOT Prescribed or Continued at Discharge Cerebrovascular accident Inclusion Criteria At DC or during hospital stay patient has or had the following: CVA/TIA Diagnosis No Discharge Core Measures Meds if any: Prescribed or Continued at Discharge Meds if any: NOT Prescribed or Continued at Discharge Venous thromboembolism Inclusion Criteria VTE Diagnosis No VTE Type NONE VTE Confirmed by (Test) NONE Discharge Core Measures - Per Current guidelines, there needs to be overlap - treatment for the first 5 days of Warfarin therapy. - If discharged on Warfarin prior to 5 days of - overlap therapy, the patient will need to be - assessed for post discharge needs including - *Post discharge parental anticoagulation - *Warfarin and/or parental anticoagulation education - *Follow up date to check INR post discharge At least 5 days overlap therapy as Inpatient No Meds if any: Prescribed or Continued at Discharge Note: Overlap Therapy is Warfarin and Anticoagulant Meds if any: NOT Prescribed or Continued at Discharge
--- NOTE | 2017-02-13 11:39 | PN- Housestaff ---
[facility] 02/13[facility]17 1139: Subjective Follow-up For: Intractable back pain Subjective: Stable, no acute overnight events reported. Patient reported that her pain is fairly managed, she only gets pain when she tries to ambulate. Based on the PT evaluation patient will need short-term rehabilitation, however patient would like to go home with a visiting physical therapist. Review of Systems Constitutional: Reports: no symptoms. Objective Last 24 Hrs of Vital Signs/I&O Vital Signs Date Time Temp Pulse Resp B/P B/P Pulse O2 O2 Flow FiO2 Mean Ox Delivery Rate 02/13 1417 97.8 64 20 122/70 94 Room Air 02/13 0947 90 122/80 02/13 0652 97.8 62 18 104/62 98 Room Air 02/12 2255 97.9 86 19 126/70 95 Room Air 02/12 1558 97.9 60 20 100/60 98 02/12 1445 Room Air Intake & Output 02/13 1600 02/13 0800 02/13 0000 Intake Total 600 120 Output Total 950 550 Balance -350 -430 Intake, Oral 600 120 Output, Urine 950 550 Physical Exam General Appearance: Alert, Oriented X3, Cooperative, No Acute Distress HEENT: Atraumatic, PERRLA, EOMI, Mucous Membr. moist/pink Cardiovascular: Regular Rate, Normal S1, Normal S2, No Murmurs Lungs: Clear to Auscultation, Normal Air Movement Abdomen: Normal Bowel Sounds, Soft, No Tenderness Neurological: Normal Speech Extremities: No Clubbing, No Cyanosis, No Edema Current Medications: Current Medications Sig/Nena Start time Last Medication Dose Route Stop Time Status Admin Aspirin Buffered 81 MG QPM 02/11 2200 AC 02/12 PO 2032 Atorvastatin Calcium 5 MG 1700 02/12 1700 AC 02/12 PO 1609 Baclofen 10 MG TIDPRN PRN 02/11 2100 AC 02/12 PO 190 Clonazepam 1 MG QPM 02/11 2200 AC 02/12 PO 02/18 Fluoxetine HCl 20 MG QAM 02/12 1000 AC 02/13 PO 0947 Gabapentin 100 MG Q8H 02/11 2100 AC 02/13 PO 140 Heparin Sodium 5,000 UNIT Q8 02/11 2200 AC 02/13 (Porcine) SC 1402 Ibuprofen 600 MG Q6P PRN 02/11 2045 AC PO Indapamide 1.25 MG DAILY 02/11 2100 AC 02/13 PO 0947 Losartan Potassium 50 MG QAM 02/12 1000 AC 02/13 PO 0947 Morphine Sulfate 2 MG Q4P PRN 02/11 2100 AC IV Niacin 1,000 MG DAILY 02/12 1000 AC 02/13 PO 0947 Omeprazole 40 MG DAILY AC 02/12 0700 AC 02/13 PO 0536 Oxybutynin Chloride 5 MG BID 02/12 1000 AC 02/13 PO 0947 Patient Medication 1 ED .STK-MED ONE 02/13 1347 DC Teaching ED 02/13 1348 Potassium Chloride 10 MEQ DAILY 02/12 1000 AC 02/13 PO 0947 Tramadol HCl 50 MG Q6P PRN 02/11 2100 AC 02/12 PO 1904 Last 24 Hrs of Lab/Gideon Results Last 24 Hrs of Labs/Mics: Laboratory Tests 02/13/17 0640: Anion Gap 9, Estimated GFR 54 L, BUN/Creatinine Ratio 17.0, CBC w Diff NO MAN DIFF REQ, RBC 3.84 L, MCV 92.6, MCH 30.7, RDW 13.8, MPV 7.1 L, Gran % 59.9, Lymphocytes % 29.2, Monocytes % 7.9, Eosinophils % 2.4, Basophils % 0.6, Absolute Granulocytes 3.6, Absolute Lymphocytes 1.8, Absolute Monocytes 0.5, Absolute Eosinophils 0.1, Absolute Basophils 0, PUBS MCHC 33.1 Assessment/Plan Assessment: # Intractable back pain secondary to sciatica versus lumbosacral strain Lumbar CAT scan showed disc extrusion at the level of L5-S1. And multilevel degenerative changes of lumbar spine. * Cont' Ibuprofen 600 every 6 hours when necessary for mild pain * Cont' Morphine 2 mg every 4 when necessary for moderate pain * Cont' Tramadol 50 mg every 6 when necessary for severe * Muscle relaxant-baclofen * Will continue home dose of gabapentin. * Fall precautions * Physical therapy consult, they recommended short-term rehabilitation however patient would like to go home with a home visiting physical therapy service #Hypertension * Continue losartan * Continue indapamide #Hyperlipidemia * Patient takes simvastatin, will give Lipitor here * Continue niacin #Depression * Continue fluoxetine #GERD * Patient takes Nexium at home * Will give omeprazole #Insomnia * Continue clonazepam home dose #Overactive bladder * Patient uses Ves[facility]are at home * Give oxybutynin Full code DVT prophylaxis subcutaneous heparin Heart healthy diet Pain pathway Problem List: 1. H/O total knee replacement 2. Hypertension 3. Hypercholesterolemia 4. Lumbago with sciatica, right side Pain Ratin Pain Location: lower back Pain Goal: Remain pain free Pain Plan: See A&P Tomorrow's Labs & Rationales: none JONO GARCIA 02/13/17 1430: Attending MD Review Statement Attending Statement Attending MD Statement: examined this patient, discuss w/resident/PA/ROD AND TUBE STRAIGHTENER, agreed w/resident/PA/ROD AND TUBE STRAIGHTENER, discussed with family, reviewed EMR data (avail), discussed with nursing, discussed with case mgmt, reviewed images, amended to note Attending Assessment/Plan: Patient resting comfortably in bed. Her pain is well controlled now but still she has pain on movement. We will continue the current pain regimen for now. Bowel regimen to avoid constipation. Physical therapy.
[2017-02-13 14:17] VITALS: BP 122/70
--- NOTE | 2017-02-13 22:20 | NUR ---
SPOKE TO PT AT THIS TIME REGARDING PLAN OF CARE FOR D/C. PT STATED THAT SHE WISHES TO GO HOME WITH PT SERVICES, AND NOT TO A REHAB OR "SKILLED NURSING". PT SAID SHE WAS ABLE TO AMBULATE WITH RW ASSIST OF 1 WITH PT TODAY BUT UNABLE TO GO DOWN STAIRS DUE TO PAIN. SAYS SHE HAS 5 STAIRS AT HOME. WISHES TO SPEAK TO CASE MANAGEMENT TOMORROW REGARDING PAYMENT AND LENGTH OF STAY IN HOSPITAL "TONIGHT IS MY 3RD NIGHT HERE, I DONT WANT TO BE KICKED OUT OR NOT HAVE MY STAY COVERED" REASSURANCE PROVIDED. WILL PASS THIS ALONG TO ONCOMING NURSE TO SPEAK WITH CASE MANAGEMENT TEAM IN THE MORNING. PT ALSO STATED SHE WOULD LIKE TO BE PREMEDICATED WITH PAIN MEDS BEFORE PT SESSION TOMORROW MORNING- WILL REPORT THIS OFF TO ONCOMING NURSE. PT CURRENTLY ABLE TO TRANSFER FROM BED TO BSC WITH MIN ASSIST OF 1 AND RW. AMBULATED TO DOORWAY AND BACK WITH RW AX1. STATES PAIN ONLY WITH MOVEMENT. REFUSING PAIN MEDS AT THIS TIME. WILL CONTINUE TO MONITOR.
[2017-02-13 22:46] VITALS: BP 128/64
[2017-02-14 06:57] VITALS: BP 114/60
--- NOTE | 2017-02-14 06:58 | PN- Housestaff ---
ANASTASIA OSBORNE,VILMA 02/14/17 0658: Subjective Follow-up For: back pain Subjective: Pt seen today, was sitting up on the bed reading a book comfortably. She reports her pain is better controlled and she is able to lay still without pain. She did not do stairs well yesterday but did better today and was cleared for home PT. plan to discharge today. Review of Systems Constitutional: Reports: see HPI. Objective Last 24 Hrs of Vital Signs/I&O Vital Signs Date Time Temp Pulse Resp B/P B/P Pulse O2 O2 Flow FiO2 Mean Ox Delivery Rate 02/14 0918 65 122/70 02/14 0657 97.6 58 18 114/60 93 Room Air 02/13 2246 99.1 66 20 128/64 95 02/13 1417 97.8 64 20 122/70 94 Room Air Intake & Output 02/14 1600 02/14 0800 02/14 0000 Intake Total 120 Output Total 100 Balance 120 -100 Intake, Oral 120 Output, Urine 100 Physical Exam General Appearance: Alert, Oriented X3, Cooperative, No Acute Distress, tearful when we discussed rehab disposition, pt wants to go home HEENT: Atraumatic, PERRLA Cardiovascular: Normal S1, Normal S2, bradycardic Lungs: Clear to Auscultation, Normal Air Movement Abdomen: Normal Bowel Sounds, Soft, No Tenderness Extremities: No Edema Current Medications: Current Medications Sig/Nena Start time Last Medication Dose Route Stop Time Status Admin Aspirin Buffered 81 MG QPM 02/11 2200 AC 02/13 PO 2054 Atorvastatin Calcium 5 MG 1700 02/12 1700 AC 02/13 PO 1559 Baclofen 10 MG TIDPRN PRN 02/11 2100 AC 02/12 PO 190 Clonazepam 1 MG QPM 02/11 2200 AC 02/13 PO 02/18 Fluoxetine HCl 20 MG QAM 02/12 1000 AC 02/14 PO 09 Gabapentin 100 MG Q8H 02/11 2100 AC 02/14 PO 0601 Heparin Sodium 5,000 UNIT Q8 02/11 2200 AC 02/14 (Porcine) SC 0601 Ibuprofen 600 MG Q6P PRN 02/11 2045 AC PO Indapamide 1.25 MG DAILY 02/11 2100 AC 02/14 PO 09 Losartan Potassium 50 MG QAM 02/12 1000 AC 02/14 PO 0918 Morphine Sulfate 2 MG Q4P PRN 02/11 2100 AC IV Niacin 1,000 MG DAILY 02/12 1000 AC 02/14 PO 0917 Omeprazole 40 MG DAILY AC 02/12 0700 AC 02/14 PO 0601 Oxybutynin Chloride 5 MG BID 02/12 1000 AC 02/14 PO 0918 Patient Medication 1 ED .STK-MED ONE 02/13 1347 DC Teaching ED 02/13 1348 Potassium Chloride 10 MEQ DAILY 02/12 1000 AC 02/14 PO 0917 Tramadol HCl 50 MG Q6P PRN 02/11 2100 AC 02/14 PO 0916 Assessment/Plan Assessment: # Intractable back pain secondary to sciatica versus lumbosacral strain - Lumbar CAT scan showed disc extrusion at the level of L5-S1. And multilevel degenerative changes of lumbar spine. * Cont' Ibuprofen 600 every 6 hours when necessary for mild pain * Cont' Morphine 2 mg every 4 when necessary for moderate pain * Cont' Tramadol 50 mg every 6 when necessary for severe * Muscle relaxant-baclofen * Will continue home dose of gabapentin. * Fall precautions * Physical therapy consult, patient cleared for home PT today #Hypertension * Continue losartan * Continue indapamide #Hyperlipidemia * Patient takes simvastatin, will give Lipitor here * Continue niacin #Depression * Continue fluoxetine #GERD * Patient takes Nexium at home * Will give omeprazole #Insomnia * Continue clonazepam home dose #Overactive bladder * Patient uses [facility] at home * Give oxybutynin Full code DVT prophylaxis subcutaneous heparin Heart healthy diet Pain pathway Problem List: 1. Lumbago with sciatica, right side Pain Ratin Pain Location: right back and leg Pain Goal: Pain 4 or less Pain Plan: tramadol Tomorrow's Labs & Rationales: none DVT/Prophylaxis: mechanical, pharmacological JONO GARCIA 02/14/17 1029: Attending MD Review Statement Attending Statement Attending MD Statement: examined this patient, discuss w/resident/PA/SALES ADVISORY MANAGER, agreed w/resident/PA/SALES ADVISORY MANAGER, discussed with family, reviewed EMR data (avail), discussed with nursing, discussed with case mgmt, reviewed images, amended to note Attending Assessment/Plan: Patient resting comfortably in bed. Her pain is well controlled now but still she has pain on movement. We will continue the current pain regimen for now. Bowel regimen to avoid constipation. Physical therapy, case management on board. anticipate d/c soon.
--- NOTE | 2017-02-14 08:44 | PN- Student ---
Subjective Subjective: Patient seen this morning laying in bed. No acute overnight report. Patient states that the pain is significantly better than when she was first admitted. Pain is minimal when laying down but flares up when getting out of bed. Objective Objective: Vital Signs Date Time Temp Pulse Resp B/P B/P Pulse O2 O2 Flow FiO2 Mean Ox Delivery Rate 02/14 0657 97.6 58 18 114/60 93 Room Air 02/13 2246 99.1 66 20 128/64 95 02/13 1417 97.8 64 20 122/70 94 Room Air 02/13 0947 90 122/80 Intake & Output 02/14 1600 02/14 0800 02/14 0000 Intake Total 120 Output Total 100 Balance 120 -100 Intake, Oral 120 Output, Urine 100 Physical Exam General Appearance: Alert, Oriented X3, Cooperative, No Acute Distress, Tearful when we discussed rehab disposition, patient wants to go home HEENT: Atraumatic, PERRLA Cardiovascular: Normal S1, Normal S2, bradycardic Lungs: Clear to Auscultation, Normal Air Movement Abdomen: Normal Bowel Sounds, Soft, No Tenderness Extremities: No Edema Current Medications Sig/Nena Start time Last Medication Dose Route Stop Time Status Admin Aspirin Buffered 81 MG QPM 02/110 AC 02/13 PO 205 Atorvastatin Calcium 5 MG 1700 02/12 1700 AC 02/13 PO 1559 Baclofen 10 MG TIDPRN PRN 02/11 2100 AC 02/12 PO 1904 Clonazepam 1 MG QPM 02/11 2200 AC 02/13 PO 02/18 2159 205 Fluoxetine HCl 20 MG QAM 02/12 1000 AC 02/13 PO 0947 Gabapentin 100 MG Q8H 02/11 2100 AC 02/14 PO 0601 Heparin Sodium 5,000 UNIT Q8 02/11 2200 AC 02/14 (Porcine) SC 0601 Ibuprofen 600 MG Q6P PRN 02/11 204 AC PO Indapamide 1.25 MG DAILY 02/11 2100 AC 02/13 PO 0947 Losartan Potassium 50 MG QAM 02/12 1000 AC 02/13 PO 0947 Morphine Sulfate 2 MG Q4P PRN 02/11 2100 AC IV Niacin 1,000 MG DAILY 02/12 1000 AC 02/13 PO 0947 Omeprazole 40 MG DAILY AC 02/12 0700 AC 02/14 PO 0601 Oxybutynin Chloride 5 MG BID 02/12 1000 AC 02/13 PO 5 Patient Medication 1 ED .STK-MED ONE 02/13 1347 NM Teaching ED 02/13 1348 Potassium Chloride 10 MEQ DAILY 02/12 1000 AC 02/13 PO 0947 Tramadol HCl 50 MG Q6P PRN 02/11 2100 AC 02/12 PO 1904 Assessment/Plan Assessment: Patient is a 70-year-old woman with a past medical history significant for chronic severe osteoarthritis, chronic back pain, chronic pain disorder, hypertension, hyperlipidemia, depression, GERD, insomnia, overactive bladder, cholecystectomy, bilateral knee joint replacement who presented to [facility] complaining of right low back pain since that same morning. 1. Acute right low back pain 2. Hypertension 3. Hyperlipidemia 4. Chronic severe osteoarthritis 5. Chronic back pain 6. Depression 7. GERD 8. Insomnia 9. Overactive bladder 1 - Acute Right Lower Back Pain - Possibly lumbago with right-sided sciatica versus lumbosacral strain Patient developped sudden and severe right lower back pain, rated as 10 out of 10 with a sharp quality, radiating down to the right lateral thigh, leg and foot after she bent over to mixing picker tender cat litter. Pain worsens with turning, twisting, and bending. Patient also reported associated numbness and tingling sensation radiating down the right thigh and foot. No weakness or sensory changes. * Lumbar CAT scan showed disc extrusion at the level of L5-S1. And multilevel degenerative changes of lumbar spine. * Maintain oxygen saturation above 90%. * Ibuprofen 600 mg Q6 when necessary for mild pain * Morphine 2 mg Q4 when necessary for moderate pain * Tramadol 50 mg Q6 when necessary for severe pain * Baclofen * Continue home dose of gabapentin. * Physical therapy consult * Fall precautions 2 - Hypertension * Continue losartan * Continue indapamide 3 - Hyperlipidemia * Patient takes simvastatin, will give Lipitor here * Continue niacin 4 - Depression * Continue fluoxetine 5 - GERD * Patient takes Nexium at home * Will give omeprazole 6 - Insomnia * Continue clonazepam home dose 7 - Overactive bladder * Patient uses Vesicare at home * Give oxybutynin Full code DVT prophylaxis subcutaneous heparin Heart healthy diet Pain pathway
[2017-02-14 09:18] VITALS: BP 122/70
[2017-02-14] MEDS ORDERED: BACLOFEN10 M1 PO (13:56)
[2017-02-14] MEDS ORDERED: NYATA15 GM TOP (13:56)
[2017-02-14] MEDS ORDERED: TRAMADOL HCL50 M1 PO (13:56)
== END 2017-02-14 14:51 | disposition home health service (06) | DRG 552 ==
LOC: ERH 15:40 → 2NA 19:54 → ERHI 19:54 → ENRESERV 20:45 → CANRESERV 20:45 → ENRESERV 20:50 → 2NA 21:59 → ENPENDDIS 02-14 10:53 → 2NA 02-14 14:51
PROVIDERS: Emergency Medicine; Internal Medicine Hematology & Oncology; ADMIT Internal Medicine
DX: M54.41 Lumbago with sciatica, right side (principal); E66.01 Morbid (severe) obesity due to excess calories; I10 Essential (primary) hypertension; S39.012A Strain of muscle, fascia and tendon of lower back, initial encounter; E78.5 Hyperlipidemia, unspecified; K21.9 Gastro-esophageal reflux disease without esophagitis; Z87.891 Personal history of nicotine dependence; F32.9 Major depressive disorder, single episode, unspecified; N32.81 Overactive bladder; Z68.37 Body mass index [BMI] 37.0-37.9, adult; X58.XXXA Exposure to other specified factors, initial encounter; Y92.009 Unspecified place in unspecified non-institutional (private) residence as the place of occurrence of the external cause
CPT/HCPCS: 2NASP; 81001; 82436; 96374; 97110-GO; 97116-GO; 97161-GP; 97530-GO; J1644

== ENCOUNTER 2017-02-17 15:00 | Emergency (ER) | payer OTHER, MEDICARE ==
[~2017-02-17] VITALS: Ht 157.5 cm; Wt 95.3 kg
[~2017-02-17 15:00] MED LIST: ASPIRIN EC81 M1 PO; BACLOFEN10 M1 PO; CLONAZEPAM1 M2 PO; FLUOXETINE HCL20 M2 PO; GABAPENTIN100 M2 PO; INDAPAMIDE1.25 M1 PO; KLOR-CON M1010 ME1 PO; LOSARTAN POTASS50 M1 PO; MELOXICAM15 M1 PO; NEXIUM40 M1 PO; NIASPAN500 M1 PO; NYATA15 GM TOP; SIMVASTATIN5 M2 PO; TRAMADOL HCL50 M1 PO; ULTRAM50 M1 PO; VESICARE5 M1 PO
--- NOTE | 2017-02-17 17:29 | ED NECK/BACK PAIN COMPLAINT ---
History of Present Illness General Chief Complaint: Low Back Pain/Injury Stated Complaint: BIBA FOR R SCIATIC PAIN Source: patient, old records Exam Limitations: no limitations Vital Signs & Intake/Output Vital Signs & Intake/Output Vital Signs Date Time Temp Pulse Resp B/P B/P Pulse O2 O2 Flow FiO2 Mean Ox Delivery Rate 02/18 1429 72 112/74 02/18 1413 112/74 02/18 1406 97.2 72 18 96/51 97 Room Air 02/18 0750 96.7 57 18 131/75 97 Room Air 02/18 0228 96.0 55 18 108/55 96 Room Air 02/17 2347 55 18 140/65 96 Room Air 02/17 2144 Room Air 02/17 2029 97.2 59 18 134/63 95 02/17 1758 148/66 02/17 1650 Room Air 02/17 1517 96.9 66 18 137/70 98 Room Air ED Intake and Output 02/18 0000 02/17 1200 Intake Total 300 Output Total 1 Balance 299 Intake, Oral 300 Output, Urine 1 Patient 210 lb Weight Weight Reported by Patient Measurement Method Allergies Coded Allergies: No Known Allergies (02/11/17) Reconcile Medications Aspirin (Ecotrin*) 81 MG TABLET.DR 1 TAB PO QPM HEART/BLOOD (Reported) Baclofen 10 MG TABLET 1 TAB PO TIDPRN PRN muscle spasm/strain Clonazepam 1 MG TABLET 1 TAB PO QPM SLEEP (Reported) Esomeprazole (Nexium) 40 MG CAPSULE.DR 1 CAP PO QPM GI (Reported) Fluoxetine HCl 20 MG CAPSULE 1 CAP PO QAM MENTAL HEALTH (Reported) Gabapentin 100 MG CAPSULE 1 CAP PO Q8H PAIN (Reported) Indapamide 1.25 MG TABLET 1 TAB PO QAM DIURETIC (Reported) Losartan Potassium 50 MG TABLET 1 TAB PO QAM HEART/BP (Reported) Meloxicam 15 MG TABLET 1 TAB PO QAM PAIN/INFLAMMATION (Reported) Niacin (Niaspan) 500 MG TAB.ER.24H 2 TAB PO QPM CHOLESTEROL (Reported) Nystatin (Nyata) 100,000 UNIT/GRAM POWDER 1 RUBY TOP BID PRN rash Potassium Chloride (Klor-Con M10) 10 MEQ TAB.ER.PRT 1 TAB PO QAM SUPPLEMENT ( Reported) Simvastatin (Simvastatin*) 5 MG TABLET 1 TAB PO QPM CHOLESTEROL (Reported) Solifenacin Succinate (Vesicare) 5 MG TABLET 1 TAB PO QAM BLADDER (Reported) Tramadol HCl (Ultram) 50 MG TABLET 1-2 TAB PO Q6PRN PRN severe pain Triage Note: BIBA FOR R SCIATIC PAIN, RECENTLY SEEN AND ADMITTED FOR SAME ON 02/11 AND DISCHARGED HOME AFTER 3 DAYS DUE TO DESIRE TO BE AT HOME AND NOT DISCHARGED TO SNF. ARRIVES TODAY DUE TO INABILITY TO PERFORM ADL'S INDEPENDENTLY AND FEELS UNSAFE AMBULATING AROUND HOME EVEN WITH USE OF WALKER. PRESCRIBED TRAMADOL WITH NO EFFICACY, JUST MAKES HER TIRED. HAS VISITING NURSE AND HOME HEALTH AID WITH PAIN MANAGEMENT DR CHAVEZ MONDAY. WANTS TO SPEAK TO FILING WRITER TO ESTABLISH A PLAN FOR A RIDE ON MONDAY. Triage Nurses Notes Reviewed? yes Onset: Gradual Duration: constant Timing: recent history Quality/Severity: radiation Location: paraspinous muscles Radiation: buttocks, upper legs, lower legs Context: lifting Method of Injury: twisted Loss of Consciousness: no loss of consciousness HPI: Patient is a 71-year-old female with past medical history of chronic severe osteoarthritis, chronic back pain, hyperlipidemia, hypertension, depression, GERD and bilateral knee replacement who presents to emergency room in which old records indicate the patient was [facility] 02[facility] for concerns of sciatica and low back pain and unable to perform daily activities. Patient had a three-day stay and she was discharged back to her primary residence where she was prescribed Ultram and baclofen patient states that on Monday 2 days ago she was evaluated by home nurse and which she was to be provided with physical therapy and social care however she was concerned that this will not be established until next week. Patient states that she has significant difficulty ambulating and performing daily activities at her house due to severe pain upon ambulation and lumbar spine and leg movements. Patient denies any trauma or new mechanism injury that has made her symptoms worse and patient was brought in by ambulance for concerns of persistent right-sided back pain with radiation down her right leg with no changes. Patient states that upon rest she has no pain. Denies any bowel or bladder incontinence or saddle paresthesia. (OTIS ALY,JASPAL) Past History Travel History Traveled to [place] past 21 day No Medical History Any Pertinent Medical History? see below for history Neurological: NONE EENT: NONE Cardiovascular: hypertension, hyperlipidemia Respiratory: NONE Gastrointestinal: GERD Hepatic: NONE Renal: OVERACTIVE BLADDER Musculoskeletal: chronic back pain, osteoarthritis, sciatica Psychiatric: chronic pain disorder, depression, PAIN MANAGEMENT Endocrine: NONE Blood Disorders: NONE Cancer(s): NONE ETHANOL QUALITY LEADER/Reproductive: NONE History of MRSA: No History of VRE: No History of CDIFF: No Influenza Vaccine: 07/23/16 Surgical History Surgical History: non-contributory Psychosocial History Who do you live with Patient/Self Services at Home None What is your primary language R[place]an Tobacco Use: Current Not Daily Family History Hx Contributory? No (JASPAL ZIEGLER) Review of Systems Review of Systems Constitutional: Reports: no symptoms. Eyes: Reports: no symptoms. Ears, Nose, Throat, Mouth: Reports: no symptoms. Respiratory: Reports: no symptoms. Cardiovascular: Reports: no symptoms. Gastrointestinal/Abdominal: Reports: no symptoms. Musculoskeletal: Reports: see HPI, back pain. Skin: Reports: no symptoms. Neurological/Psychological: Reports: see HPI, paresthesia. All Other Systems: Reviewed and Negative (JASPAL ZIEGLER) Physical Exam Physical Exam General Appearance: no apparent distress, obese Neck: normal inspection, supple, full range of motion Comments: HEENT: Normal EENT exam, Neck: Supple, no lymphadenopathy, normal range of motion without pain or tenderness Back- normal inspection, right lateral muscular point tenderness noted decreased active range of motion noted Severe point tenderness upon palpation Cardiovascular: Regular rate and rhythms no murmurs rubs or gallops, normal JVP Respiratory: Chest nontender. No respiratory distress.breath sounds clear to auscultation bilaterally Abdomen: Soft, nontender nondistended, no appreciable organomegaly. Normal bowel sounds. No ascites Extremity: No edema, no calf tenderness to palpation, normal and equal pulses. Bilateral lower extremity dermatomes intact Neuro: Alert oriented x3, motor sensory normal, positive straight leg raise Skin: No appreciable rash on exposed skin, skin is warm and dry. Psych: Mood and affect is normal, memory and judgment is normal. (JASPAL ZIEGLER) Progress Differential Diagnosis: AAA, aortic dissection, C spine injury, carotid dissection, cauda equina syn, herniated disc, myofascial strain, pyelo/UTI, sciatica, spinal cord inj, thoracic outlet syn, T/L spine injury, ureterolithiasis Plan of Care: Orders Procedure Date/time Status Regular Diet 02/18 B Active Theraputic Activities 15 Min 02/18 UNK Complete MOBILITY GOAL STATUS 02/18 UNK Complete MOBILITY CURRENT STATUS 02/18 UNK Complete Gait Training, 15 Min 02/18 UNK Complete PT EVAL MOD COMPLEX 30 MIN 02/18 UNK Complete Evaluation - PT 02/18 UNK Complete PT Evaluate & Treat 02/17 2038 Active CASE MANAGEMENT CONSULT 02/17 1942 Active URINALYSIS 02/18 1752 Complete COMPREHENSIVE METABOLIC PANEL 02/18 1752 Complete CBC WITHOUT DIFFERENTIAL 02/18 1752 Complete EKG 02/18 1752 Active Current Medications Sig/Nena Start time Last Medication Dose Stop Time Status Admin Nystatin 1 RUBY TID 02/18 1000 AC 02/18 (Mycostatin) 1003 Laboratory Tests 02/17/17 1830: Anion Gap 11, Estimated GFR > 60, BUN/Creatinine Ratio 24.4, Glucose 98, Calcium 9.8, Total Bilirubin 0.6, AST 31, ALT 44, Alkaline Phosphatase 104, Total Protein 6.9, Albumin 3.8, Globulin 3.1, Albumin/Globulin Ratio 1.2, CBC w Diff NO MAN DIFF REQ, RBC 3.94 L, MCV 92.6, MCH 31.0, RDW 13.8, MPV 7.3 L, Gran % 66.6, Lymphocytes % 24.0, Monocytes % 6.8, Eosinophils % 1.8, Basophils % 0.8, Absolute Granulocytes 4.2, Absolute Lymphocytes 1.5, Absolute Monocytes 0.4, Absolute Eosinophils 0.1, Absolute Basophils 0.1, PUBS MCHC 33.4 02/17/17 1810: Urine Color YEL, Urine Clarity CLEAR, Urine pH 6.0, Ur Specific [place] 1.020, Urine Protein NEG, Urine Ketones NEG, Urine Nitrite NEG, Urine Bilirubin NEG, Urine Urobilinogen 0.2, Ur Leukocyte Esterase NEG, Ur Microscopic EXAM NOT REQUIRED, Urine Hemoglobin NEG, Urine Glucose NEG Patient currently is resting comfortably on bed. Blood work was established urine was resulted as was EKG showing no acute findings. Discussed patient with case management who advised patient to receive official physical therapy consultation Discussed patient for hand off with Dr. Gold in which patient's disposition plan is pending physical therapy. PT evaluation was ordered (JASPAL ZIEGLER) Hand-Off Endorsed To: GARTH GOLD MD Endorsed Time: 2299 Pending: consult (JASPAL ZIEGLER) Hand-Off Endorsed To: SINGH OSBORNE,KIT Gudino Endorsed Time: 0700 Pending: consult (SAEID OSBORNE,GARTH Conn) Departure Departure Condition: Stable Clinical Impression Primary Impression: Low back pain Secondary Impressions: Lumbar radicular pain, Unable to ambulate Referrals: ROSALEE OSBORNE,OSMIN Acuna (PCP/Family) Departure Forms: Customer Survey General Discharge Information (JASPAL ZIEGLER) Departure Disposition: ACUTE REHAB FACILITY PA/PONY ROUGHER Co-Sign Statement Statement: ED Attending supervision documentation- [X] I saw and evaluated the patient. I have also reviewed all the pertinent lab results and diagnostic results. I agree with the findings and the plan of care as documented in the PA's/PONY ROUGHER's documentation. [X] I have reviewed the ED Record and agree with the PA's/PONY ROUGHER's documentation. [] Additions or exceptions (if any) to the PAs/PONY ROUGHER's note and plan are summarized below: [] (SINGH OSBORNE,KIT Gudino)
[2017-02-17 18:59] LABS: ABSOLUTE BASOPHIL COUNT 0.1 /CUMM (0.0-0.2); ABSOLUTE EOSINOPHIL COUNT 0.1 /CUMM (0.0-0.7); ABSOLUTE GRANULOCYTE CT 4.2 /CUMM (1.4-6.5); ABSOLUTE LYMPH COUNT 1.5 /CUMM (1.2-3.4); ABSOLUTE MONOCYTE COUNT 0.4 /CUMM (0.10-0.60); BASOPHIL % 0.8 % (0.0-2.0); EOSINOPHIL % 1.8 % (0-5); GRANULOCYTE % 66.6 % (42.2-75.2); HEMATOCRIT 36.5 % (37-47); MEAN CORPUSCULAR HGB CONC 33.4 G/DL (33.0-37.0); MEAN CORPUSCULAR VOLUME 92.6 FL (81.0-99.0); MEAN PLATELET VOLUME 7.3 FL (7.4-10.4); PLATELET COUNT 225 /CUMM (130-400); RBC DISTRIBUTION WIDTH 13.8 % (11.5-14.5); RED BLOOD CELL CT 3.94 /CUMM (4.20-5.40); WHITE BLOOD CELL COUNT 6.3 /CUMM (4.8-10.8)
[2017-02-18 14:29] VITALS: BP 112/74
== END 2017-02-18 17:43 ==
LOC: ERH 15:00
PROVIDERS: Physician Assistant
DX: M54.5 Low back pain (principal); M54.16 Radiculopathy, lumbar region; R26.2 Difficulty in walking, not elsewhere classified; I10 Essential (primary) hypertension; Z72.0 Tobacco use
CPT/HCPCS: 81003; 93005; 93010; 97116-GP; 97162-GP; 97530-GP; G8978-GP; G8979-GP; G8980-GP; J3490